=== PATIENT | female | born 2000 | race African-American/Black ===

== ENCOUNTER 2022-04-27 22:34 | Emergency (ER) | payer MEDICAID ==
[~2022-04-27] VITALS: Ht 175.3 cm; Wt 88.9 kg
[2022-04-28] MEDS ORDERED: IBUP-2028 MT (02:41)
[2022-04-28 03:17] VITALS: BP 130/85
== END 2022-04-28 03:00 | disposition home or self-care (01) ==
LOC: ER 22:34
DX: R22.1 Localized swelling, mass and lump, neck (principal)
CPT/HCPCS: 70490; 81025; 99284